=== PATIENT | female | born 1990 | race Caucasian/White ===

== ENCOUNTER 2016-09-25 01:34 | Emergency (ER) | payer MEDICAID ==
[~2016-09-25] VITALS: Ht 157.5 cm; Wt 80.0 kg
[~2016-09-25 01:34] MED LIST: IBUP800T25 PO; PREN1TAB62 PO
[2016-09-25 01:44] VITALS: Ht 157.5 cm; Wt 80.0 kg
[2016-09-25] MEDS ORDERED: METHYLPREDNISOLONE 125 MG INJ IM STA (01:49)
[2016-09-25] MEDS ORDERED: ALBUTEROL 0.5% (NEB) 2.5 MG/0.5 ML AMP INH STA (01:49)
--- NOTE | 2016-09-25 02:38 | RADRPT ---
PROCEDURE: Chest. CLINICAL INDICATION: Shortness of breath. TECHNIQUE: Single frontal view of the chest was obtained. COMPARISON: 05/04/2014. FINDINGS: The cardiac silhouette is within normal limits. The aortic arch is unremarkable. There is no focal consolidation, vascular congestion or pleural effusion. There is no pneumothorax. IMPRESSION: No evidence for active cardiopulmonary disease. .Navin Williamson MD, Date Time Electronically viewed and signed by .Navin Williamson MD, MD on 09/25/2016 02:37 .T/
[2016-09-25] MEDS ORDERED: PRED20TA PO (02:54)
[2016-09-25] MEDS ORDERED: ALBU8.5H3 INH (02:54)
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
[2016-09-25 03:34] VITALS: BP 124/71; PULSE 106; RESP 20; TEMP 98.5
== END 2016-09-25 03:34 | disposition home or self-care (01) ==
LOC: E/R 01:34
DX: T59.811A Toxic effect of smoke, accidental (unintentional), initial encounter (principal); I10 Essential (primary) hypertension; E11.9 Type 2 diabetes mellitus without complications
CPT/HCPCS: 71010; 94644; 96372; J2930; Z7502; Z7610

== ENCOUNTER 2017-06-21 13:46 | Emergency (ER) | END 2017-06-21 20:10 | disposition home or self-care (01) ==